=== PATIENT | male | born 1985 | race Two or more races ===

== ENCOUNTER 2021-11-09 19:45 | Emergency (ER) | payer SELFPAY ==
[~2021-11-09] VITALS: Ht 177.8 cm; Wt 92.0 kg
[2021-11-09] MEDS ORDERED: IODIXANOL 320MG/ML 100ML BTL IV ONE (20:55)
[2021-11-09 21:55] LABS: Basophils # (auto) 0.1 10 ^3/uL (0-0.2); Basophils % (auto) 0.5 % (0.0-2.0); Eosinophils # (auto) 0.1 10 ^3/uL (0-0.8); Eosinophils % (auto) 1.1 % (0.0-7.0); Hematocrit 43.7 % (41.0-53.0); Hemoglobin 15.1 g/dL (13.5-17.5); Lymphocytes # (auto) 2.1 10 ^3/uL (0.4-5.4); Lymphocytes % (auto) 18.7 % (10.0-50.0); Mean Corpuscular Hemoglobin 30.9 pg (28.0-32.0); Mean Corpuscular Hgb Conc. 34.7 g/dL (32.0-36.0); Mean Corpuscular Volume 89.1 fL (80.0-100.0); Monocytes # (auto) 0.6 10 ^3/uL (0-1.3); Monocytes % (auto) 5.7 % (0.0-12.0); Neutrophils # (auto) 8.1 10 ^3/uL (1.6-8.6); Red Cell Distribution Width 13.6 % (11.8-14.3)
[2021-11-09 22:05] LABS: Albumin 4.5 g/dL (3.4-5.0); BUN/Creatinine Ratio 16.5; Potassium 3.9 mmol/L (3.5-5.1)
[2021-11-09 22:07] LABS: Bilirubin, Total 0.8 mg/dL (0.2-1.0); Total Protein 7.9 g/dL (6.4-8.2)
[2021-11-09 23:00] VITALS: BP 139/95
[2021-11-09] MEDS ORDERED: BACL5TAB2 PO (23:13)
== END 2021-11-09 23:55 | disposition home or self-care (01) ==
LOC: ER 19:45 → EDBD 19:45 → ER 23:55
DX: M54.59 Other low back pain (principal); R10.9 Unspecified abdominal pain; V43.52XA Car driver injured in collision with other type car in traffic accident, initial encounter; Y93.89 Activity, other specified; Y92.410 Unspecified street and highway as the place of occurrence of the external cause; Y99.8 Other external cause status
CPT/HCPCS: 36415; 71045; 71260; 74177; 80053; 82550; 85025; 99285; Q9967